=== PATIENT | female | born 2000 | race Caucasian/White ===

== ENCOUNTER 2022-10-28 12:59 | Emergency (ER) | payer MEDICAID | END 2022-10-28 15:12 | disposition home or self-care (01) | LOC: JD.ED 12:59 | DX: S00.83XA Contusion of other part of head, initial encounter (principal); Z88.8 Allergy status to other drugs, medicaments and biological substances; Z72.0 Tobacco use; Y04.0XXA Assault by unarmed brawl or fight, initial encounter | CPT/HCPCS: 70486; 70486-26; 99283 ==